=== PATIENT | female | born 1985 | race Caucasian/White ===

== ENCOUNTER 2019-06-03 13:18 | Emergency (ER) | payer MEDICAID ==
--- NOTE | 2019-06-03 14:58 | ED Physician Documentation ---
PD HPI LOWER EXT INJURY - Stated complaint Stated Complaint: RT CALF PX - Chief complaint Chief Complaint: Ext Problem - History obtained from History obtained from: Patient - History of Present Illness PD HPI LOW EXT INJURY LOCATION: Right, Calf Type of injury: Other (Patient states felt a pop in her leg 2 days ago, now has redness and swelling. Worse with walking. Better with rest) Timing - onset: How many days ago (2) Pain level max: 5 Pain level now: 5 Improved by: Rest Worsened by: Moving, Palpating Associated symptoms: Swelling, Discolored (redness) Contributing factors: No: Anticoagulated Similar symptoms before: Has not had sx before Recently seen: Not recently seen Review of Systems Constitutional: denies: Fever Cardiac: denies: Chest pain / pressure Respiratory: denies: Cough GI: denies: Vomiting Skin: denies: Rash Musculoskeletal: denies: Neck pain, Back pain Neurologic: denies: Headache PD PAST MEDICAL HISTORY - Past Medical History Past Medical History: Yes Cardiovascular: None Respiratory: Asthma Neuro: Migraines Endocrine/Autoimmune: None GI: None COAGULATING OPERATOR: None : None HEENT: None Psych: None Musculoskeletal: None Derm: None - Past Surgical History Past Surgical History: Yes /COAGULATING OPERATOR: section, Tubal ligation - Present Medications Home Medications: Ambulatory Orders Medication Instructions Recorded Confirmed Promethazine [Phenergan] 25 - 50 mg PO Q6H PRN #10 tab 04/16/14 Ibuprofen [Motrin] 800 mg PO Q8H PRN #30 tablet 06/03/19 - Allergies Allergies/Adverse Reactions: Allergies Allergy/AdvReac Type Severity Reaction Status Date / Time Penicillins Allergy Severe hives, Verified 06/03/19 13:35 swelling aspirin Allergy Hives Verified 06/03/19 13:35 - Social History Does the pt smoke?: Yes Smoking Status: Current every day smoker Does the pt drink ETOH?: No Does the pt have substance abuse?: No - Immunizations Immunizations are current?: Yes - POLST Patient has POLST: No PD ED PE NORMAL - Vitals Vital signs reviewed: Yes - General General: Alert and oriented X 3, No acute distress - HEENT HEENT: Moist mucous membranes - Derm Derm: Warm and dry - Neuro Neuro: Alert and oriented X 3 - Psych Psych: Normal mood, Normal affect PD ED PE EXPANDED - Extremities ADIS LE visual: 1 - swelling (4x5cm area light erythema and mild swelling. NVI.) Results - Vitals Vitals: Vital Signs - 24 hr 06/03/19 06/03/19 06/03/19 13:32 15:33 16:41 Temperature 35.9 C L Heart Rate 79 61 74 Respiratory 16 12 14 Rate Blood Pressure 99/66 119/73 112/68 O2 Saturation 96 100 100 Oxygen O2 Source Room air - Rads (name of study) Right knee x-ray Radiology: Prelim report reviewed, EMP read contemporaneously, See rad report (No acute abnormality) Right lower extremity duplex ultrasound Radiology: Prelim report reviewed, EMP read contemporaneously, See rad report ( No evidence of right lower extremity deep venous thrombosis. Right medial calf vein superficial vein thrombosis which is proximal and medial to the site of pain and redness. ) PD MEDICAL DECISION MAKING - ED course Complexity details: reviewed results, re-evaluated patient, considered differential, d/w patient, d/w family ED course: 33-year-old female presents to the emergency department with redness and swelling to the right lower extremity. Appears to have a superficial thrombophlebitis. Will treat with NSAIDs, warm and cool compresses and elevation. We will have her follow-up with her doctor. No evidence of extension into deep veins. No indication for anticoagulation at this time. Patient counseled regarding signs and symptoms for which I believe and urgent re-evaluation would be necessary. Patient with good understanding of and agreement to plan and is comfortable going home at this time This document was made in part using voice recognition software. While efforts are made to proofread this document, sound alike and grammatical errors may oc cur. Departure - Departure Disposition: 01 Home, Self Care Clinical Impression: Superficial thrombophlebitis Qualifiers: Superficial thrombophlebitis-Involved body area: lower extremity Laterality: right Qualified Code(s): I80.01 - Phlebitis and thrombophlebitis of superficial vessels of right lower extremity Condition: Good Instructions: ED Phlebitis Superficial Follow-Up: your,doctor in 1 week [Other] Prescriptions: Ibuprofen [Motrin] 800 mg PO Q8H PRN #30 tablet PRN Reason: PAIN &/OR FEVER Comments: You have a superficial blood clot in your left leg. There is no blood clots in the deep system. Will place you on anti-inflammatory medications. You can use warm or cool compresses as well. Elevate the leg as well. Return if you worsen. Discharge Date/Time: 06/03/19 16:41
--- NOTE | 2019-06-03 15:03 | XRAY Report ---
Reason: R knee pain, no know injury. pain medial Procedure Date: 06/03/2019 Accession Number: [id number] / [id number] Procedure: XR - Knee 4 View RT CPT Code: FULL RESULT: EXAM: RIGHT KNEE RADIOGRAPHY EXAM DATE: 06/03/2019 02:51 PM. CLINICAL HISTORY: R knee pain, no known injury. pain medial. COMPARISON: None. TECHNIQUE: 4 views. FINDINGS: Bones: Normal. No fractures or bone lesions. Joints: Normal. No effusion. No subluxations. Soft Tissues: No focal soft tissue swelling. There are tubular densities in the subcutaneous fat medial to the proximal tibia, suggestive of varicose veins. IMPRESSION: 1. No acute osseous abnormality or joint effusion. 2. Tubular densities in the subcutaneous fat medial to the proximal tibia, suggestive of varicose veins. RADIA
--- NOTE | 2019-06-03 15:54 | Ultrasound Report ---
Reason: R LE redness, swelling, medial anterior calf Procedure Date: 06/03/2019 Accession Number: [id number] / [id number] Procedure: US - Duplex Ext Veins Right CPT Code: FULL RESULT: EXAM: RIGHT LOWER EXTREMITY VENOUS ULTRASOUND EXAM DATE: 06/03/2019 03:42 PM. CLINICAL HISTORY: R LE redness, swelling, medial anterior calf. COMPARISON: 06/03/2019 3:43 PM. TECHNIQUE: Real-time sonographic vascular imaging was performed by the delivery mgr through the lower extremity utilizing both color-flow and Doppler spectral analysis. Multiple group sales representative static images were saved for review. FINDINGS: Common Femoral Vein (CFV): Normal. CFV-GSV Junction: Normal. Profunda Femoral Vein (PFV): Normal. Femoral Vein (FV) Prox: Normal. Femoral Vein (FV) Mid: Normal. Femoral Vein (FV) Dist: Normal. Popliteal Vein: Normal. Posterior Tibial Veins: Normal. Peroneal Veins: Normal. Other: Within a superficial vein in the medial right calf is thrombus present which is proximal medial to the site of pain and redness. IMPRESSION: 1. No evidence of right lower extremity deep venous thrombosis. 2. Right medial calf vein superficial vein thrombosis which is proximal and medial to the site of pain and redness. RADIA
[2019-06-03 16:43] VITALS: BP 112/68
== END 2019-06-03 16:41 | disposition home or self-care (01) ==
LOC: ED 13:18
DX: I82.811 Embolism and thrombosis of superficial veins of right lower extremity (principal); F17.200 Nicotine dependence, unspecified, uncomplicated
CPT/HCPCS: 99284

== ENCOUNTER 2019-06-29 16:59 | Emergency (ER) | payer MEDICAID ==
--- NOTE | 2019-06-29 17:21 | ED Physician Documentation ---
History of Present Illness - Stated complaint Stated Complaint: RT LE PX/POSS BLOOD CLOT - Chief complaint Chief Complaint: General - History obtained from History obtained from: Patient - Additonal information Additional information: Patient is a 33-year-old female presenting with concern for right knee discomfort. Patient reports that she was seen recently and determined to have superficial thrombophlebitis with negative x-ray and DVT ultrasound. Patient has been taking ibuprofen with improvement of all swelling and skin changes. Patient does still have palpable veins. 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 No other known trauma and no known bony tenderness or deformities. Patient denies significant change in sensation, strength, range of motion to leg. Patient is able to bear weight without issue. No other improving or worsening factors noted. Review of Systems Skin: denies: Rash Musculoskeletal: reports: Extremity pain, Joint pain. denies: Extremity swelling, Joint swelling Neurologic: denies: Focal weakness, Numbness PD PAST MEDICAL HISTORY - Past Medical History Cardiovascular: None Respiratory: Asthma Neuro: Migraines Endocrine/Autoimmune: None GI: None VENUE COORDINATOR: None : None HEENT: None Psych: None Musculoskeletal: None Derm: None - Past Surgical History Past Surgical History: Yes /VENUE COORDINATOR: section, Tubal ligation - Present Medications Home Medications: Ambulatory Orders Medication Instructions Recorded Confirmed Ibuprofen [Motrin] 800 mg PO Q8H PRN #30 tablet 06/03/19 - Allergies Allergies/Adverse Reactions: Allergies Allergy/AdvReac Type Severity Reaction Status Date / Time Penicillins Allergy Severe hives, Verified 06/29/19 17:05 swelling aspirin Allergy Hives Verified 06/29/19 17:05 - Social History Does the pt smoke?: Yes Smoking Status: Current every day smoker Does the pt drink ETOH?: No Does the pt have substance abuse?: No - Immunizations Immunizations are current?: Yes - POLST Patient has POLST: No PD ED PE NORMAL - Vitals Vital signs reviewed: Yes - General General: Alert and oriented X 3, No acute distress, Well developed/nourished - HEENT HEENT: Atraumatic, Moist mucous membranes - Neck Neck: Supple, no meningeal sign - Cardiac Cardiac: Strong equal pulses - Respiratory Respiratory: No respiratory distress - Derm Derm: Normal color, Warm and dry, No rash, Other (Multiple superficial veins palpable to right posterior calf that are nonpainful and without discoloration or other complication.) - Extremities Extremities: No deformity, No edema, No calf tenderness / cord. No: No tenderness to palpate (Mild tenderness to posterior right knee only. Remainder of right lower extremity within normal limits except as stated above.) - Neuro Neuro: Alert and oriented X 3, No motor deficit, No sensory deficit - Psych Psych: Normal mood, Normal affect Results - Vitals Vitals: Vital Signs - 24 hr 06/29/19 17:02 Temperature 36.6 C Heart Rate 85 Respiratory 18 Rate Blood Pressure 113/71 O2 Saturation 99 Oxygen O2 Source Room air PD MEDICAL DECISION MAKING - ED course Complexity details: reviewed old records, considered differential, d/w patient ED course: Patient has known superficial thrombophlebitis as evidenced on ultrasound within the past several weeks. No DVT or bony abnormalities on previous work-up. Patient denies new trauma or other complaints would raise concern for bony dislocation or fracture. Do not feel repeat x-rays are needed. Patient also denies symptoms that would raise high suspicion for DVT at this time. Did offer ultrasound, but patient declines and feel this is appropriate refusal. Most concerning for bursitis or Torres's cyst, particularly given characteristics of discomfort, location, and patient's work. Discussed supportive cares for such including physical therapy, bracing, [id number] medications. Patient has follow-up with primary care physician scheduled for later this week. Also discussed other strict return precautions. Patient denies or other medical issues that would preclude her from receiving Toradol. This was offered and she accepted this medication in the ED. Departure - Departure Disposition: 01 Home, Self Care Clinical Impression: Bursitis due to overuse Condition: Good Instructions: ED Bursitis Follow-Up: your,doctor [Other] - Within 3 Days Comments: Recommend elevation and ice application when possible. When using leg recommend protective gear such as kneepads and/or bracing. Also recommend use of [id number] medications such as ibuprofen/Tylenol as needed to help relieve the swelling, inflation, and discomfort. Please follow-up with primary care ph ysician next 2 to 3 days or as scheduled. Return to ED sooner if experience worsening symptoms or have other concerns.
[2019-06-29] MEDS ORDERED: KETOROLAC 60 MG/2 ML VIAL IM STA (17:28)
[2019-06-29 18:00] VITALS: BP 119/76
== END 2019-06-29 18:00 | disposition home or self-care (01) ==
LOC: ED 16:59
DX: M70.861 Other soft tissue disorders related to use, overuse and pressure, right lower leg (principal); Y93.H2 Activity, gardening and landscaping; I80.01 Phlebitis and thrombophlebitis of superficial vessels of right lower extremity; F17.200 Nicotine dependence, unspecified, uncomplicated
CPT/HCPCS: 96372; 99283; 99284

== ENCOUNTER 2019-07-12 12:40 | Emergency (ER) | payer MEDICAID ==
--- NOTE | 2019-07-12 13:05 | ED Physician Documentation ---
PD HPI LOWER EXT INJURY - Stated complaint Stated Complaint: RT LEG PX - Chief complaint Chief Complaint: Ext Problem - History obtained from History obtained from: Patient - History of Present Illness PD HPI LOW EXT INJURY LOCATION: Right (This is a 33-year-old woman who is been dealing with issues with a diagnosis of superficial vein thrombosis in the right leg for the last month or so. More recently the pain has moved up into the thigh. It was in the calf. Is actually keeping her up at night. She is not on control but she does smoke. No recent travel. No calf pain, now, no chest pain, no trouble breathing other than her usual asthma.) Review of Systems Constitutional: reports: Reviewed and negative Throat: reports: Reviewed and negative Cardiac: reports: Reviewed and negative PD PAST MEDICAL HISTORY - Past Medical History Cardiovascular: None Respiratory: Asthma Neuro: Migraines Endocrine/Autoimmune: None GI: None PRODUCT RESPONSIBILITY LIAISON: None : None HEENT: None Psych: None Musculoskeletal: None Derm: None - Past Surgical History Past Surgical History: Yes /PRODUCT RESPONSIBILITY LIAISON: section, Tubal ligation - Present Medications Home Medications: Ambulatory Orders Medication Instructions Recorded Confirmed Ibuprofen [Motrin] 800 mg PO Q8H PRN #30 tablet 06/03/19 Rivaroxaban [Xarelto] 10 mg PO DAILY #45 tablet 07/12/19 - Allergies Allergies/Adverse Reactions: Allergies Allergy/AdvReac Type Severity Reaction Status Date / Time Penicillins Allergy Severe hives, Verified 06/29/19 17:05 swelling aspirin Allergy Hives Verified 06/29/19 17:05 - Social History Does the pt smoke?: Yes Smoking Status: Current every day smoker Does the pt drink ETOH?: No Does the pt have substance abuse?: No - Immunizations Immunizations are current?: Yes - POLST Patient has POLST: No PD ED PE NORMAL - Vitals Vital signs reviewed: Yes - General General: Alert and oriented X 3, No acute distress - Extremities Extremities: Other (She has an ecchymotic area where the old superficial vein thrombosis was in the right medial upper calf and now has swelling and tenderness in the lower medial hamstring area. No evidence of infection.) - Neuro Neuro: Alert and oriented X 3, Normal speech Results - Vitals Vitals: Vital Signs - 24 hr 07/12/19 12:45 Heart Rate 78 Respiratory 14 Rate Blood Pressure 119/72 O2 Saturation 99 Oxygen O2 Source Room air PD MEDICAL DECISION MAKING - ED course ED course: 33-year-old woman with recent diagnosis of superficial vein thrombosis in the right lower extremity now worsening, and ultrasound shows progression into the saphenous vein. Her online research seems reasonable to put her on a low-dose of Xarelto for 45 days. Her only identifiable risk factor is tobacco abuse and she is counseled to quit smoking. Departure - Departure Disposition: 01 Home, Self Care Clinical Impression: Superficial thrombophlebitis Qualifiers: Superficial thrombophlebitis-Involved body area: lower extremity Laterality: right Qualified Code(s): I80.01 - Phlebitis and thrombophlebitis of superficial vessels of right lower extremity Condition: Good Record reviewed to determine appropriate education?: Yes Instructions: ED Phlebitis Superficial Prescriptions: Rivaroxaban [Xarelto] 10 mg PO DAILY #45 tablet Comments: As discussed, given the worsening nature of your lumbar phlebitis and it is getting closer to the deep venous system, we are starting on a low-dose blood thinner for a month and a half. Try not to hit your head or engage in dangerous activities while on this. Immediately seek medical attention if you hit your head or have dark or tarry stools. Follow-up with your doctor next week as scheduled.
--- NOTE | 2019-07-12 15:38 | Ultrasound Report ---
Reason: worse leg pain, recent SVT Procedure Date: 07/12/2019 Accession Number: [id number] / [id number] Procedure: US - Duplex Ext Veins Right CPT Code: FULL RESULT: EXAM: RIGHT LOWER EXTREMITY VENOUS ULTRASOUND EXAM DATE: 07/12/2019 03:15 PM. CLINICAL HISTORY: Worse leg pain. Recent SVT. COMPARISON: 06/03/2019. TECHNIQUE: Real-time sonographic vascular imaging was performed by the linux consultant through the lower extremity utilizing both color-flow and Doppler spectral analysis. Multiple field representative/health education static images were saved for review. FINDINGS: Common Femoral Vein (CFV): Normal. CFV-GSV Junction: Normal. Profunda Femoral Vein (PFV): Normal. Femoral Vein (FV) Prox: Normal. Femoral Vein (FV) Mid: Normal. Femoral Vein (FV) Dist: Limited visualization. Popliteal Vein: Normal. Posterior Tibial Veins: Limited visualization. Peroneal Veins: Normal. Contralateral Side CFV: Normal. Other: Superficial vein thrombus in proximal right calf again noted. Thrombus noted in the greater saphenous vein. IMPRESSION: 1. No evidence for deep venous thrombosis. 2. Superficial vein thrombus again noted in the medial proximal calf, as well as new superficial vein thrombus in the greater saphenous vein. RADIA
[2019-07-12 16:08] VITALS: BP 119/78
== END 2019-07-12 16:08 | disposition home or self-care (01) ==
LOC: ED 12:40
DX: I80.01 Phlebitis and thrombophlebitis of superficial vessels of right lower extremity (principal); F17.200 Nicotine dependence, unspecified, uncomplicated
CPT/HCPCS: 99283; 99284

== ENCOUNTER 2020-02-06 12:54 | Outpatient (CLI) | payer OTHER, MEDICAID | END 2020-02-06 12:55 | disposition critical access hospital (66) | LOC: EMS 12:54 | PROVIDERS: ATTEND Surgery | DX: S61.111A Laceration without foreign body of right thumb with damage to nail, initial encounter (principal); W31.82XA Contact with other commercial machinery, initial encounter; Y93.89 Activity, other specified; Y92.512 Supermarket, store or market as the place of occurrence of the external cause; Y99.0 Civilian activity done for income or pay | CPT/HCPCS: A0425; A0429 ==

== ENCOUNTER 2020-02-06 13:19 | Emergency (ER) | payer OTHER, MEDICAID ==
[2020-02-06 13:30] VITALS: BP 113/65
[2020-02-06] MEDS ORDERED: LIDOCAINE-MPF 2% 5 ML VIAL SUBQ STA (14:01)
[2020-02-06] MEDS ORDERED: BACITRACIN ZINC OINT 1 PACKET TOP STA (14:36)
--- NOTE | 2020-02-06 15:01 | ED Physician Documentation ---
PD HPI HEAD INJURY - Stated complaint Stated Complaint: THUMB LAC - Chief complaint Chief Complaint: Laceration - History obtained from History obtained from: Patient (Pleasant 34-year-old female comes in today with chief complaint of a right thumb laceration. 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 Patient has good use of her thumb flexion extension.) Review of Systems Constitutional: reports: Reviewed and negative Eyes: reports: Reviewed and negative Ears: reports: Reviewed and negative Nose: reports: Reviewed and negative Throat: reports: Reviewed and negative GI: reports: Reviewed and negative : reports: Reviewed and negative Skin: reports: Laceration (s) PD PAST MEDICAL HISTORY - Past Medical History Cardiovascular: None Respiratory: Asthma Neuro: Migraines Endocrine/Autoimmune: None GI: None TAG CLERK: None : None HEENT: None Psych: None Musculoskeletal: None Derm: None - Past Surgical History Past Surgical History: Yes /TAG CLERK: section, Tubal ligation - Present Medications Home Medications: Ambulatory Orders Medication Instructions Recorded Confirmed No Known Home Medications 02/06/20 02/06/20 - Allergies Allergies/Adverse Reactions: Allergies Allergy/AdvReac Type Severity Reaction Status Date / Time Penicillins Allergy Severe hives, Verified 02/06/20 13:29 swelling aspirin Allergy Hives Verified 02/06/20 13:29 - Social History Does the pt smoke?: Yes Smoking Status: Current every day smoker Does the pt drink ETOH?: No Does the pt have substance abuse?: No - Immunizations Immunizations are current?: Yes - POLST Patient has POLST: No PD ED PE NORMAL - General General: Alert and oriented X 3, No acute distress, Well developed/nourished - HEENT HEENT: Atraumatic, PERRL, EOMI - Cardiac Cardiac: RRR, No murmur - Respiratory Respiratory: No respiratory distress - Derm Derm: Normal color, Warm and dry, No rash - Extremities Extremities: Other (Right thumb, distal phalanx, avulsion laceration.) PD ED PE EXPANDED - Extremities Extremities: Other (Right thumb, distal phalanx, avulsion laceration.) ADIS UE/Hands Visual: 1 - laceration Results - Vitals Vitals: Vital Signs - 24 hr 02/06/20 13:27 Temperature 37 C Heart Rate 75 Respiratory 18 Rate Blood Pressure 113/65 O2 Saturation 98 Oxygen O2 Source Room air PD MEDICAL DECISION MAKING - ED course Complexity details: reviewed results, re-evaluated patient, d/w patient Departure - Departure Disposition: Home, Self Care Clinical Impression: Laceration Condition: Good Instructions: ED Laceration All Comments: Your thumb laceration is not repairable by suturing today. You Shaved off the end of your thumb along with part of the nail. Continue to keep the area covered suggest using a Vaseline impregnated gauze does not adhere to the wound. Keep the dressing on while you are at work. Wear gloves while you are at work. Change the dressing when it becomes soiled. To 3 days you should be able to go to a Band-Aid. Watch for signs of infection, redness going up, fevers, chills. He can take ibuprofen or Tylenol for pain control.
== END 2020-02-06 15:41 | disposition home or self-care (01) ==
LOC: EDUNIT# → ED 13:19
DX: S61.111A Laceration without foreign body of right thumb with damage to nail, initial encounter (principal); W29.8XXA Contact with other powered hand tools and household machinery, initial encounter; Y93.G1 Activity, food preparation and clean up; Y92.89 Other specified places as the place of occurrence of the external cause; Y99.0 Civilian activity done for income or pay; F17.210 Nicotine dependence, cigarettes, uncomplicated
CPT/HCPCS: 1040M; 99282; 99283; A9270

== ENCOUNTER 2024-01-15 08:00 | Outpatient (CLI) | payer SELFPAY ==
[2024-01-15 23:01] LABS: CHLAMYDIA TRACHOMATIS DNA NEGATIVE (NEGATIVE); NEISSERIA GONORRHOEAE DNA NEGATIVE (NEGATIVE); TRICHOMONAS VAGINALIS DNA NEGATIVE (NEGATIVE)
== END 2024-01-15 23:59 | disposition home or self-care (01) ==
LOC: LAB.S 08:00
PROVIDERS: ATTEND Emergency Medicine
DX: Z72.51 High risk heterosexual behavior (principal)
CPT/HCPCS: 87491; 87591; 87661

== ENCOUNTER 2024-04-15 19:27 | Emergency (ER) | payer MEDICAID ==
[2024-04-15 20:50] LABS: B. PARAPERTUSSIS- RESP PCR PAN NOT DETECTED; B. PERTUSSIS- RESP PCR PANEL NOT DETECTED; C. PNEUMONIAE- RESP PCR PANEL NOT DETECTED; CORONAVIRUS 229E-RESP PCR NOT DETECTED; CORONAVIRUS HKU1-RESP PCR NOT DETECTED; CORONAVIRUS NL63-RESP PCR NOT DETECTED; CORONAVIRUS OC43-RESP PCR NOT DETECTED; HUMAN METAPNEUMOVIRUS NOT DETECTED; INFLUENZA A- RESP PCR PANEL NOT DETECTED; INFLUENZA B - RESP PCR PANEL NOT DETECTED; M. PNEUMONIAE- RESP PCR PANEL NOT DETECTED; PARAINFLUENZA VIRUS 1 NOT DETECTED; PARAINFLUENZA VIRUS 2 NOT DETECTED; PARAINFLUENZA VIRUS 3 NOT DETECTED; PARAINFLUENZA VIRUS 4 NOT DETECTED; RHINOVIRUS/ENTEROVIRUS DETECTED; RSV- RESP PCR PANEL NOT DETECTED; SARS-CoV-2 -RESP PCR PANEL NOT DETECTED
--- NOTE | 2024-04-15 20:57 | ED Physician Documentation ---
PD HPI URI - Stated complaint Stated Complaint: SOA/COUGH - Chief complaint Chief Complaint: Resp - Additional information Additional information: 38-year-old female presents emergency department for persistent cough after concerns of cleaning a trailer about a week and a half and no concerns for mold exposure. Patient has history of asthma she is also take multiple inhalers that she has consistently still been doing but just feels like she can get over this cough and feels like no matter what she does it lingers. No shortness of breath no chest pain. Patient does endorse an smoking cigarettes but says that she has had to cut back recently. 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: section, Tubal ligation - Present Medications Home Medications: Ambulatory Orders Medication Instructions Recorded Confirmed Albuterol Sulf [Ventolin Hfa 1 - 2 puffs INH Q4HR #1 ea 04/15/24 Inhaler] - Allergies Allergies/Adverse Reactions: Allergies Allergy/AdvReac Type Severity Reaction Status Date / Time Penicillins Allergy Severe hives, Verified 04/15/24 19:49 swelling aspirin Allergy Hives Verified 04/15/24 19:49 - Social History Does the pt smoke?: Yes Smoking Status: Current every day smoker Does the pt drink ETOH?: No Does the pt have substance abuse?: No - Immunizations Immunizations are current?: Yes - POLST Patient has POLST: No PD ED PE NORMAL - Vitals Vital signs reviewed: Yes - General General: Alert and oriented X 3, No acute distress, Well developed/nourished - Cardiac Cardiac: RRR - Respiratory Respiratory: No respiratory distress, Clear bilaterally - Extremities Extremities: No edema, No calf tenderness / cord - Psych Psych: Normal mood Results - Vitals Vitals: Vital Signs - 24 hr 04/15/24 04/15/24 04/15/24 19:46 21:10 21:40 Temperature 36.7 C Heart Rate 98 90 91 Respiratory 18 18 22 Rate Blood Pressure 103/66 104/76 O2 Saturation 100 95 Oxygen O2 Source Room air - Labs Labs: Laboratory Tests 04/15/24 19:51 Nasal Adenovirus (PCR) NOT DETECTED Nasal B. parapertussis DNA (PCR) NOT DETECTED Nasal Coronavir 229E PCR NOT DETECTED Nasal Coronavir HKU1 PCR NOT DETECTED Nasal Coronavir NL63 PCR NOT DETECTED Nasal Coronavir OC43 PCR NOT DETECTED Nasal Enterovir/Rhinovir PCR DETECTED A Nasal Influenza B PCR NOT DETECTED Nasal Influenza A PCR NOT DETECTED Nasal Parainfluen 1 PCR NOT DETECTED Nasal Parainfluen 2 PCR NOT DETECTED Nasal Parainfluen 3 PCR NOT DETECTED Nasal Parainfluen 4 PCR NOT DETECTED Nasal RSV (PCR) NOT DETECTED Nasal B.pertussis DNA PCR NOT DETECTED Nasal C.pneumoniae (PCR) NOT DETECTED Otoniel Human Metapneumo PCR NOT DETECTED Nasal M.pneumoniae (PCR) NOT DETECTED Nasal SARS-CoV-2 (PCR) NOT DETECTED - Rads (name of study) Chest x-ray Relevant Findings:: Final report received, EMP independent interpretation of test, Other (No acute cardiopulmonary abnormalities) PD Medical Decision Making - ED course ED course: 38-year-old female presents emergency department for cough and generalized malaise. Respiratory swab was complete and patient tested positive for rhinovirus. Patient is most likely experiencing bronchitis due to the rhinovirus. She was given a DuoNeb here in the emergency department as well as some dexamethasone as well for her sore throat. Patient was strongly encouraged to quit smoking as she is recovering from this and told to follow-up with her primary care provider soon as possible outpatient. Chest x-ray was complete for further evaluation no acute cardiopulmonary abnormalities. Prescription of albuterol was sent to her preferred pharmacy for her refilled per her request. Strict ER return precautions given. Patient is overall well-appearing no further emergent workup indicated at this time return precautions given patient safer discharge. Departure - Departure Disposition: 01 Home, Self Care Clinical Impression: Influenza A, Bronchitis Instructions: ED Flu Prescriptions: Albuterol Sulf [Ventolin Hfa Inhaler] 1 - 2 puffs INH Q4HR #1 ea Comments: Thank you for trusting us with your care. I have sent an albuterol inhaler refill to your preferred pharmacy. I would strongly encourage you to quit smoking while you are recovering from influenza A as this is going to prolong your bronchitis and recovery front to the flu. Drink plenty of fluids come back to the ER if you are having any fevers or chills worsening symptoms or any other concerning emergent needs. Forms: PCP List Discharge Date/Time: 04/15/24 21:42
--- NOTE | 2024-04-15 21:01 | XRAY Report ---
PROCEDURE: Chest 2V INDICATIONS: cough TECHNIQUE: 2 views of the chest were acquired. COMPARISON: None. FINDINGS: Surgical changes and devices: None. Lungs and pleura: No pleural effusions or pneumothorax. Lungs are clear. Mediastinum: Mediastinal contours appear normal. Heart size is normal. Bones and chest wall: No suspicious bony lesions. Overlying soft tissues appear unremarkable. IMPRESSION: No acute cardiopulmonary process. Reviewed by: Juancho Genao MD on 04/15/2024 8:59 PM PDT Approved by: Juancho Genao MD on 04/15/2024 8:59 PM PDT Station ID: [id number]
[2024-04-15] MEDS: IPRATROPIUM/ALBUTEROL 3 ML NEB INH STA (21:12)
[2024-04-15] MEDS: DEXAMETHASONE 10 MG/ML VIAL PO STA (21:13)
[2024-04-15] MEDS: CHERRY SYRUP 10 ML UDC PO ONE (21:13)
[2024-04-15 21:46] VITALS: BP 104/76; O2SAT 95
== END 2024-04-15 21:42 | disposition home or self-care (01) ==
LOC: ED 19:27
DX: J10.1 Influenza due to other identified influenza virus with other respiratory manifestations (principal); F17.200 Nicotine dependence, unspecified, uncomplicated
CPT/HCPCS: 71046; 87633; 94640; 94664; 99284; A9270

== ENCOUNTER 2024-07-25 12:58 | Emergency (ER) | payer MEDICAID ==
--- NOTE | 2024-07-25 14:47 | ED Physician Documentation ---
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 Patient says that she did see the spider and it did not appear to be a brown recluse she said it was just a large black spider that she was able to kill. Since then the swelling has increased in severity and very rapidly this happened 2 days ago and it has doubled in size in terms of redness and swelling. She says that she is having significant amount of pain she is unsure if is having any fevers but she does endorse some cold sweats. 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, Tubal ligation - Present Medications Home Medications: Ambulatory Orders Medication Instructions Recorded Confirmed Albuterol Sulf [Ventolin Hfa 1 - 2 puffs INH Q4HR #1 ea 04/15/24 Inhaler] Sulfamethox/Trimeth 800/160 1 tablet PO BID 7 Days #14 tablet 07/25/24 [Bactrim Ds] cephALEXin [Keflex] 500 mg PO Q6H 7 Days #28 cap 07/25/24 - Allergies Allergies/Adverse Reactions: Allergies Allergy/AdvReac Type Severity Reaction Status Date / Time Penicillins Allergy Severe hives, Verified 07/25/24 15:18 swelling aspirin Allergy Hives Verified 07/25/24 15:18 - Social History Does the pt smoke?: Yes Smoking Status: Current every day smoker Does the pt drink ETOH?: No Does the pt have substance abuse?: No - Immunizations Immunizations are current?: Yes - POLST Patient has POLST: No PD ED PE NORMAL - Vitals Vital signs reviewed: Yes - General General: Alert and oriented X 3, No acute distress, Well developed/nourished - Derm Derm: Other (There does appear to be a very small fluid collection at the p roximal left cassidy with erythema surrounding the area no purulent drainage of the fluid collection no fluctuation) - Psych Psych: Other (anxious) Results - Vitals Vitals: Vital Signs - 24 hr 07/25/24 07/25/24 07/25/24 13:09 14:37 16:22 Temperature 37 C Heart Rate 112 H 101 H 102 H Respiratory 16 18 Rate Blood Pressure 127/85 H 126/107 H 104/69 O2 Saturation 99 100 100 Oxygen O2 Source Room air - Labs Labs: Laboratory Tests 07/25/24 07/25/24 15:09 15:09 WBC 13.4 H RBC 4.16 L Hgb 12.6 Hct 36.2 L MCV 87.0 MCH 30.3 MCHC 34.8 RDW 11.9 L Plt Count 248 MPV 9.6 Neut # (Auto) 10.5 H Lymph # (Auto) 1.6 Glascock # (Auto) 1.1 H Eos # (Auto) 0.1 Baso # (Auto) 0.0 Absolute Nucleated RBC 0.00 Nucleated RBC % 0.0 Sodium 135 Potassium 3.8 Chloride 100 L Carbon Dioxide 31 Anion Gap 4.0 L BUN 11 Creatinine 0.7 Estimated GFR (MDRD) 94 Glucose 98 Calcium 9.0 Magnesium 1.8 Total Bilirubin 0.8 AST 37 ALT 45 Alkaline Phosphatase 80 Total Protein 7.1 Albumin 4.0 Globulin 3.1 Albumin/Globulin Ratio 1.3 Lipase 19 PD Medical Decision Making - ED course ED course: 38-year-old female presents emergency department left lower extremity redness and swelling. Patient says that she did see the spider was able to kill it successfully and says it did not appear to be a brown with this. There does not appear to be any necrotic tissue there does appear to be a fluid collection to the proximal left cassidy with surrounding erythema. There is no fluctuation there is nothing that could be incised and drained. A wound culture was collected and patient was started on Keflex and Bactrim. She was informed that we will call her in a few days if she needs to change antibiotics and was told how to manage the wound at home. Patient was tachycardic upon arrival to the emergency department she remains afebrile she is very anxious which could be contributing to her tachycardia she denies any meth use but she does appear to be under some sort of substance which could also be contributing to the tachycardia. She does not show any signs or symptoms of sepsis despite mild leukocytosis, WBC 13.4 no other significant lab abnormalities or findings. Prescription sent to patient's preferred pharmacy and given strict ER return precautions and told to follow-up with primary care provider outpatient for further evaluation. Departure - Departure Disposition: 01 Home, Self Care Clinical Impression: Cellulitis of left lower extremity Spider bite Qualifiers: Encounter type: initial encounter Instructions: Cellulitis Dc Prescriptions: Sulfamethox/Trimeth 800/160 [Bactrim Ds] 1 tablet PO BID 7 Days #14 tablet cephALEXin [Keflex] 500 mg PO Q6H 7 Days #28 cap Comments: Thank you for trusting us with your care. It is very important that you picker feeder these antibiotics today and take the next dose of Keflex and Bactrim today. Starting tomorrow you will take the Keflex 4 times a day for the next 7 days and Bactrim twice a day for the next 7 days. If you have not taking these antibiotics as prescribed for the next 2 days and you have no improvement of symptoms or you are getting any worse please come back to the emergency department immediately for further evaluation. We will call you in a couple days about your wound cultures if you need to change antibiotics and make sure that you keep your phone on you. We will not be calling you if you do not need to change antibiotics. Forms: PCP List Discharge Date/Time: 07/25/24 16:24
[2024-07-25 14:48] VITALS: O2SAT 100
[2024-07-25] MEDS: KETOROLAC 30 MG/ML VIAL IVP STA (15:15)
[2024-07-25] MEDS: ACETAMINOPHEN 500 MG TABLET PO STA (15:15)
[2024-07-25 15:16] LABS: BASOPHILS % (AUTO) 0.2 %; EOSINOPHILS # (AUTO) 0.1 10^3/uL (0.0-0.7); EOSINOPHILS % (AUTO) 0.9 %; HCT - HEMATOCRIT 36.2 % (37.0-47.0); HGB - HEMOGLOBIN 12.6 g/dL (12.0-16.0); LYMPHOCYTES # (AUTO) 1.6 10^3/uL (1.5-3.5); LYMPHOCYTES % (AUTO) 11.7 %; MEAN CORPUSCULAR HEMOGLOBIN 30.3 pg (27.0-31.0); MEAN CORPUSCULAR HGB CONC 34.8 g/dL (32.0-36.0); MEAN PLATELET VOLUME 9.6 fL (7.9-10.8); MONOCYTES # (AUTO) 1.1 10^3/uL (0.0-1.0); MONOCYTES % (AUTO) 8.3 %; NEUTROPHILS # (AUTO) 10.5 10^3/uL (1.5-6.6); NEUTROPHILS % (AUTO) 78.6 %; PLT - PLATELET COUNT 248 10^3/uL (130-450); RED BLOOD COUNT 4.16 10^6/uL (4.20-5.40); RED CELL DISTRIBUTION WIDTH 11.9 % (12.0-15.0); WHITE BLOOD COUNT 13.4 x10^3/uL (4.8-10.8)
[2024-07-25 15:36] LABS: ALBUMIN/GLOBULIN RATIO 1.3 (1.0-2.2); BILIRUBIN,TOTAL 0.8 mg/dL (0.2-1.0); CREATININE 0.7 mg/dL (0.6-1.3); MAGNESIUM 1.8 mg/dL (1.7-2.3); POTASSIUM 3.8 mmol/L (3.5-4.5); TOTAL PROTEIN 7.1 g/dL (6.4-8.9)
[2024-07-25] MEDS: SULFAMETH/TRIMETH DS 800/160 MG TABLET PO STA (15:49)
[2024-07-25] MEDS: cephALEXin 250 MG CAPSULE PO STA (15:49)
[2024-07-25 16:29] VITALS: BP 104/69
== END 2024-07-25 16:24 | disposition home or self-care (01) ==
LOC: ED 12:58
DX: L03.116 Cellulitis of left lower limb (principal); W57.XXXA Bitten or stung by nonvenomous insect and other nonvenomous arthropods, initial encounter; R00.0 Tachycardia, unspecified; F41.9 Anxiety disorder, unspecified; F17.200 Nicotine dependence, unspecified, uncomplicated
CPT/HCPCS: 36415; 80053; 83690; 83735; 85025; 96374; 99283; A9270